=== PATIENT | male | born 2000 | race Asian ===

== ENCOUNTER 2020-07-26 17:56 | Inpatient (IN) | payer OTHER ==
[~2020-07-26] VITALS: Ht 172 cm; Wt 58.2 kg
[2020-07-26 18:38] LABS: BASO % 0.4 % (0.0-2.0); EOS % 0.6 % (0-4.0); GRAN # 4.3 (1.4-6.5); GRAN % 64.3 % (42.2-75.2); HEMATOCRIT 51.7 % (42.0-52.0); LYMPH # 1.9 (1.2-3.4); LYMPH % 27.9 % (20.0-51.0); MEAN CELL VOLUME 94 fl (80.0-100.0); MEAN CORPUSCULAR HEMOGLOBIN 33 pg (27.0-31.0); MEAN CORPUSCULAR HGB CONC 35 g/dl (33.0-37.0); MEAN PLATELET VOLUME 10.9 fl (7.4-10.4); MONO # 0.5 (0.1-0.6); MONO % 6.7 % (1.7-9.3); PLATELET COUNT 209 K/mm3 (130-400); RED BLOOD COUNT 5.52 M/mm3 (4.20-5.60); REDCELL DISTRIBUTION WIDTH-CV 12.5 % (11.5-14.5)
[2020-07-26 18:39] LABS: HEMOGLOBIN 18.1 g/dl (13.5-18.0)
[2020-07-26 18:48] LABS: ALANINE AMINOTRANSFERASE 28 U/L (4-49); ALBUMIN 4.5 gm/dL (3.5-5.0); ALKALINE PHOSPHATASE < 20 U/L (50-136); ANION GAP 10 mmol/L (7-16); AST,SGOT 24 U/L (15-37); BILIRUBIN,TOTAL 0.9 mg/dL (0.0-1.0); BLOOD UREA NITROGEN 13 mg/dL (9-20); CALCIUM 9.3 mg/dL (8.4-10.2); CARBON DIOXIDE 26 mmol/L (22-30); CHLORIDE 103 mmol/L (98-107); CREATININE, serum 0.88 (0.66-1.25); GLUCOSE 86 mg/dL (74-106); SODIUM 139 mmol/L (137-145); TOTAL PROTEIN 8.5 gm/dL (6.4-8.2)
[2020-07-26 19:11] LABS: TROPONIN-I < 0.012 ng/mL (0.000-0.035)
--- NOTE | 2020-07-26 22:00 | NUR ---
Patient up from ED via stretcher. Chest tube in right chest to waterseal with continuous suction. Patient on 2 L of oxygen via nasal cannula. Complaints of pain in chest with movement. Oriented to room and call light. Admission and med rec done.
--- NOTE | 2020-07-26 23:00 | NUR ---
New orders from Dr. Bonilla. PAtient given pain medication and started on fluids. PAtient provided with a sandwich box and water. No other needs at this time. Call light in reach.
[2020-07-26 23:49] VITALS: BP 118/73; PULSE 71; TEMP 98.6
[2020-07-27 03:49] VITALS: BP 125/56; PULSE 76; TEMP 97.4
[2020-07-27 06:56] VITALS: BP 128/65; PULSE 74; TEMP 98.1
--- NOTE | 2020-07-27 08:32 | NUR ---
Chest tube canister changed at 0825. Will obtain CXR at 0930 per doctors order.
--- NOTE | 2020-07-27 08:32 | NUR ---
Patient alert and oriented, answers questions appropriately. See assessment. Chest tube in place to right chest wall, redness noted at site, sutures in place, tegaderm in place. RUL lung sounds absent, RLL lungs sound diminished. No c/o at this time.
[2020-07-27 11:07] VITALS: BP 116/60; PULSE 99; TEMP 98.2
--- NOTE | 2020-07-27 13:11 | NUR ---
Vaseline gauze, gauze, sterile water and clamps x2 placed at bedside at 0730 this a.m.
[2020-07-27 14:53] VITALS: BP 117/66; PULSE 83; TEMP 98.7
--- NOTE | 2020-07-27 17:11 | NUR ---
Plan to return home locally. SW met with patient about plan for DC. Patient reports that he is a student and does not have a PCP but could go to [facility] on [address] for follow-up. Patient reports that he has a friend that will help him and transport him home [place] . Patient denies having an established pharmacy for medications. Patient denies any DME supports or HHS use. Nothing Follows.
[2020-07-27 19:12] VITALS: BP 110/68; PULSE 80; TEMP 98.8
--- NOTE | 2020-07-27 21:00 | NUR ---
PT IN BED. HAS RT CHEST SMALL BORE CHEST TUBE TO 20CM CONTINUOUS SUCTION, NO OUTPUT. DENIES NEED FOR PAIN MEDS. DOES NOT WANT TO SIGN CONSENT FOR NEW CHEST TUBE AT THIS TIME. STATED "I THINK THIS NEEDS MORE TIME". SL TO RT FOREARM. VOIDING PER URINAL.
[2020-07-27 23:53] VITALS: BP 112/64; PULSE 81; TEMP 98.3
--- NOTE | 2020-07-28 03:48 | NUR ---
Pt awake, has been NPO since midnight. Chest tube with no output. Voiding per urinal. Asking if he can wash his hair today.
[2020-07-28 04:14] VITALS: BP 110/59; PULSE 84; TEMP 98
[2020-07-28 07:49] VITALS: BP 110/60; PULSE 88; TEMP 98.2
[2020-07-28 08:08] LABS: BASO % 0.2 % (0.0-2.0); EOS % 0.3 % (0-4.0); GRAN # 7.8 (1.4-6.5); GRAN % 82.2 % (42.2-75.2); HEMATOCRIT 48.4 % (42.0-52.0); HEMOGLOBIN 16.6 g/dl (13.5-18.0); LYMPH # 1.1 (1.2-3.4); LYMPH % 11.1 % (20.0-51.0); MEAN CELL VOLUME 96 fl (80.0-100.0); MEAN CORPUSCULAR HEMOGLOBIN 33 pg (27.0-31.0); MEAN CORPUSCULAR HGB CONC 34 g/dl (33.0-37.0); MEAN PLATELET VOLUME 10.9 fl (7.4-10.4); MONO # 0.6 (0.1-0.6); MONO % 5.9 % (1.7-9.3); PLATELET COUNT 175 K/mm3 (130-400); RED BLOOD COUNT 5.05 M/mm3 (4.20-5.60); REDCELL DISTRIBUTION WIDTH-CV 12.7 % (11.5-14.5)
[2020-07-28 08:15] LABS: CALCIUM 8.9 mg/dL (8.4-10.2); CREATININE, serum 0.93 (0.66-1.25)
--- NOTE | 2020-07-28 09:46 | NUR ---
Pt is alert and oriented. Pt has diminished lung sounds in right uppper lobe and absent in right lower lobe. Lung sounds are clear upon auscultation throughout all left lobes. Pt stated "feeling much better than yesterday".
[2020-07-28 11:38] VITALS: BP 113/55; PULSE 83; TEMP 98.2
[2020-07-28 15:30] VITALS: BP 114/64; PULSE 90; TEMP 98.5
[2020-07-28 20:13] VITALS: BP 114/60; PULSE 75; TEMP 98.2
--- NOTE | 2020-07-28 21:00 | NUR ---
Patient resting in bed watching tv. No complaints of pain at this time. Right chest tube to water seal and low continuous suction. Some redness to chest tube site noted. Patient is drinking plenty of water. No other needs at this time.
[2020-07-28 23:34] VITALS: BP 108/54; PULSE 62; TEMP 98.3
[2020-07-29] VITALS (12 sets, daily range): BP systolic 105–122; BP diastolic 53–75; PULSE 60–87; TEMP 97.1–98.4
--- NOTE | 2020-07-29 07:41 | NUR ---
Radiologist called this nurse, chest xray report & concerns discussed. I called and made him aware, discussed with patient importance of remaining NPO per Dr. Bonilla. reports he will be in with patient to discussed plan of care.
--- NOTE | 2020-07-29 09:32 | NUR ---
Patient resting in bed with earplugs in. He sat at edge of bed for assessement. With deep breathing, he reports it makes him cough. He used is IS well. He denies SOB and pain. Chest tube tegaderm dressing intact to right chest. bubbling noted in canister. Obtained Scds and placed on patients legs bilaterlly. Discussed what the Scds were used for . Awaiting to round.
--- NOTE | 2020-07-29 11:20 | NUR ---
Karina called from [facility]. They are to retrieve patient at 1130 to take to surgery. Patient prepped for OR. He was up to sink brushed his teeth, went to the bathroom. New linens. Bed bath provided. Periop hand off form completed & consent on chart to be signed by patient once doctor has spoken to him.
--- NOTE | 2020-07-29 11:45 | NUR ---
Patient to the [facility] with Therese Pacu nurse
--- NOTE | 2020-07-29 12:43 | NUR ---
First visit from the rail layer. No needs right now.
--- NOTE | 2020-07-29 13:22 | NUR ---
Patient post op to room 322. Sharon Pacu nurse brought patient up. Juan Jose [facility] nurse gave bedside report. I did also get phone report from [facility]. Patient Lying supine in bed. Slightly drowsy, but easily arousable. Prior chest tube site gauze and tegaderm intact. Patient new right chest tube to 20cm suction. Will place to water seal at 1600 per orders. Dressing Cdi. Scds placed to Ble. Ice water provided. Will let patient rest & monitor closely.
--- NOTE | 2020-07-29 13:40 | NUR ---
Cytoxan infusion completed at 1330 and NS flush run to clear line. Pt reports she feels fine and denies concerns. T 98.6, BP 140/100, P76, R 14, 02 sat 99%. IV site dc'd, pressure applied. Cathlon intact. Gauze and pressure dressing applied. Pt is to see Dr Garcia as scheduled and he will schedule infusion once decision is made on what drug she will recieve and her labs are closely monitored. Pt requested to ambulate on her own to private vehicle to go home. She was given printed information again for review of chemotherapy precautions at home. Contact information also provided to her. Pt discharged ambulatory at 1340.
--- NOTE | 2020-07-29 14:11 | NUR ---
Patient chest tube canister fluids appeared to have been tipped on transfer. New Canister placed. Bubbling now noted in chamber correctly. Patient denies the need for pain medication at this time, but does appear uncomfortable. He is sitting up eating cookies. Vss
--- NOTE | 2020-07-29 15:28 | NUR ---
Dr. Bonilla called & chest xray order clarified. Ordered for AM. Patient continues to rest in bed denies the need for pain medication. Vitals remain stable.
--- NOTE | 2020-07-29 16:30 | NUR ---
Chest tube to waterseal per orders. Patient resting, Denies the need for pain medication at this time
--- NOTE | 2020-07-29 17:55 | NUR ---
Patient assist to sit at edge of bed. Pain elevated, he was very hesitant to take medication for pain, but his facial expressions & groaning, made it evident he was hurting. I was able to talk him into Motrin. He had some water & cookies with the motrin. A friend will be bringing him dinner. Since Chest tube to water seal at 1630, he denies Shortness or air, just pain to Right side. Will montior closely.
--- NOTE | 2020-07-29 19:04 | NUR ---
Patient sitting in chair. Friend at bedside. Report to Bita NIELSEN
[2020-07-30 04:51] VITALS: BP 113/64; PULSE 59; TEMP 97.9
[2020-07-30 07:38] VITALS: BP 112/62; PULSE 58; TEMP 97.6
--- NOTE | 2020-07-30 08:00 | NUR ---
PATIENT ALERT AND ORIENTED X3. VSS. COMPLAINS OF SOME DISCOMFORT TO THE CHEST TUBE INSERTION SITE BUT REFUSES ANY MEDICATION AT THIS TIME. DENIES ANY N/V. HEAD TO TOE ASSESSMENT COMPLETED. LUNG SOUNDS CLEAR IN ALL LOBES. DENIES SOB. HEART SOUNDS REGULAR AND NORMAL. BOWEL SOUNDS ACTIVE IN ALL FOUR QUADRANTS. ABDOMEN IS SOFT AND NON TENDER. PULSES ARE EQUAL AND READILY PALPABLE IN RADIAL, POST TIBIAL AND PEDAL LOCATIONS. PATIENT DENIES ANY PAIN OR TENDERNESS IN THE CALVES. THERE IS NO EDEMA, WARMTH OR REDNESS NOTED IN THE LOWER EXTREMETIES. THERE IS APPROXIMATELY 5ML OF RED TINGED DRAINAGE IN THE RIGHT SIDED CHEST TUBE THAT IS ON DEPENDENT DRAINAGE. THE DRESSING TO THE CHEST WALL IS CLEAN, DRY AND INTACT. WILL CONTINUE TO MONITOR. BED IS LEFT IN THE LOWEST POSITION AND CALL LIGHT LEFT WITHIN REACH.
--- NOTE | 2020-07-30 10:00 | NUR ---
CALLED AND REPORTED; PATIENT HAD A REOCCURANCE OF THE RIGHT PNEUMO AND NEEDS TO BE PLACED BACK ON SUCTION. RIGHT CHEST TUBE TO LIS OF 15-20 OF SUCTION. PATIENT C/O SHARP PAIN WITH SUCTION AND NOW REQUESTING PAIN MEDS. STUDENT NURSE GAVE PRN OXYCODONE, ONE TAB FOR PAIN. NOTIFIED OF PATIENT'S COMPLAIN AND NURSING WAS REASURED TO KEEP CHEST TUBE TO LIS AND GIVE PAIN MEDS. WILL MONITOR.
--- NOTE | 2020-07-30 10:45 | NUR ---
PATIENT'S RIGHT CHEST TUBE TO LOW CONTINUOUS, 15-20 OF SUCTION. PATIENT RESTING UP IN BED, DROWSY FROM PAIN MEDS. WILL MONITOR.
[2020-07-30 11:55] VITALS: BP 115/60; PULSE 64; TEMP 98.2
--- NOTE | 2020-07-30 14:15 | NUR ---
PATIENT ATE LUNCH, NO C/O N/V. PATIENT ASSISTED INTO BEDSIDE CHAIR, TOLERATED WELL. RIGHT CHEST TO CONTINUOUS SUCTION WITH MINIMAL OUTPUT NOTED.
[2020-07-30 15:29] VITALS: BP 118/68; PULSE 58; TEMP 98.3
[2020-07-30 20:07] VITALS: BP 122/62; PULSE 64; TEMP 97.8
[2020-07-31 00:55] VITALS: BP 135/79; PULSE 61; TEMP 97.4
--- NOTE | 2020-07-31 02:12 | NUR ---
PATIENT IN BED WATCHING SHOWS ON HIS PHONE. PRN PAIN MEDICATION ADMINISTERED X'S 1 THIS SHIFT. NO NEW CONCERNS NOTED OR VERBALIZED BY PATIENT THROUGHOUT THIS SHIFT.
[2020-07-31 04:47] VITALS: BP 108/57; PULSE 55; TEMP 98
[2020-07-31 06:06] LABS: BASO % 0.3 % (0.0-2.0); EOS # 0.2 (0.0-0.7); EOS % 2.4 % (0-4.0); GRAN # 3.7 (1.4-6.5); GRAN % 57.7 % (42.2-75.2); HEMATOCRIT 43.9 % (42.0-52.0); HEMOGLOBIN 15.1 g/dl (13.5-18.0); LYMPH % 30.9 % (20.0-51.0); MEAN CELL VOLUME 97 fl (80.0-100.0); MEAN CORPUSCULAR HEMOGLOBIN 33 pg (27.0-31.0); MEAN CORPUSCULAR HGB CONC 34 g/dl (33.0-37.0); MEAN PLATELET VOLUME 10.9 fl (7.4-10.4); MONO # 0.5 (0.1-0.6); MONO % 8.5 % (1.7-9.3); PLATELET COUNT 205 K/mm3 (130-400); RED BLOOD COUNT 4.55 M/mm3 (4.20-5.60); REDCELL DISTRIBUTION WIDTH-CV 12.3 % (11.5-14.5)
[2020-07-31 06:16] LABS: ALBUMIN 3.6 gm/dL (3.5-5.0); CALCIUM 8.7 mg/dL (8.4-10.2); CREATININE, serum 0.87 (0.66-1.25); POTASSIUM 3.8 mmol/L (3.4-5.0)
[2020-07-31 07:41] VITALS: BP 122/53; PULSE 60; TEMP 97.7
--- NOTE | 2020-07-31 09:14 | NUR ---
CT to water seal per drs order.
--- NOTE | 2020-07-31 09:36 | NUR ---
Patient alert and oriented, answers questions appropriately. See assessment. Chest tube in place to right chest wall, dressing CDI. Chest tube to water seal. Lungs CTA all sanderson. No c/o SOA or pain. No c/o at this time.
--- NOTE | 2020-07-31 11:28 | NUR ---
ALLEN met with the patient to follow up. The patient states that he is doing okay. He reports that he still plans on returning home upon discharge. No additional needs at this time.
[2020-07-31 11:40] VITALS: BP 120/57; PULSE 64; TEMP 98
[2020-07-31 15:33] VITALS: BP 117/73; PULSE 65; TEMP 97.6
[2020-07-31 19:57] VITALS: BP 114/50; PULSE 60; TEMP 98.2
[2020-08-01 00:23] VITALS: BP 130/68; PULSE 63; TEMP 98.2
[2020-08-01 04:25] VITALS: BP 120/50; PULSE 60; TEMP 97.6
--- NOTE | 2020-08-01 06:03 | NUR ---
Patient had no complaints of pain throughout the shift. Spent a lot of time sitting up while he was awake. Patient mentioned that his family would like to speak with Dr. Bonilla. Will pass along to day shift. No other needs at this time.
[2020-08-01 07:58] VITALS: BP 124/69; PULSE 52; TEMP 98.2
--- NOTE | 2020-08-01 09:30 | NUR ---
Patient alert and oriented, answers questions appropriately. See assessment. Chest tube in place to right chest, dressing CDI. Chest tube to waterseal. Lungs CTA. No c/o at this time.
[2020-08-01 11:52] VITALS: BP 125/64; PULSE 57; TEMP 97.6
[2020-08-01] MEDS ORDERED: MOTRIN 600600 MG/TAB PO (13:55)
[2020-08-01 15:14] VITALS: BP 129/56; PULSE 74; TEMP 98.5
--- NOTE | 2020-08-01 18:06 | NUR ---
Discharge instructions reviewed with patient, verbalized understanding. Discharged ambulatory to auto/home with friend at 1800.
== END 2020-08-01 18:00 | disposition home or self-care (01) | DRG 201 ==
LOC: COL.ER 17:56 → SURG 20:59 → COL.ER 20:59 → SURG 20:59
PROVIDERS: Physician Assistant; ADMIT Surgery
PROC: 0W9930Z Drainage of Right Pleural Cavity with Drainage Device, Percutaneous Approach (ICD-10-PCS; principal; 2020-07-29 12:00)
DX: J93.83 Other pneumothorax (principal); F17.210 Nicotine dependence, cigarettes, uncomplicated; Z88.0 Allergy status to penicillin
CPT/HCPCS: A7041; A9284; J0690; J1170; J2250; J2704; J3010; J7120

== ENCOUNTER 2020-09-04 18:47 | Emergency (ER) | payer OTHER ==
[~2020-09-04] VITALS: Ht 439.4 cm; Wt 58.2 kg
[~2020-09-04 18:47] MED LIST: MOTRIN 600600 MG/TAB PO
[2020-09-04 19:04] VITALS: TEMP 98.7
[2020-09-04 20:50] VITALS: BP 120/72; PULSE 78
== END 2020-09-04 20:57 | disposition home or self-care (01) ==
LOC: COL.ER 18:47
DX: S63.502A Unspecified sprain of left wrist, initial encounter (principal); F17.200 Nicotine dependence, unspecified, uncomplicated; Z88.0 Allergy status to penicillin; V13.4XXA Pedal cycle driver injured in collision with car, pick-up truck or van in traffic accident, initial encounter